=== PATIENT | female | born 1965 | race Hispanic/Latino ===

== ENCOUNTER 2018-09-15 18:23 | Emergency (ER) | payer BC ==
--- NOTE | 2018-09-15 19:34 | ED PDOC ---
Lower Extremity Pain/Injury Time Seen by Provider: 09/15/18 18:44 Chief Complaint (Nursing): Lower Extremity Problem/Injury Chief Complaint (Provider): Fall, head injury, ankle injury History Per: Patient History/Exam Limitations: no limitations Onset/Duration Of Symptoms: Other (prior to arrival) Additional Complaint(s): 53yo female, otherwise well, comes to ER for evaluation after a mechanical fall due to a slip on the landing mat at the end of the stairs. Patient states she twisted her ankle and fell to the ground, hit her head but is unsure if she lost consciousness. Patient now complaining of left ankle and foot pain and mild lower back "soreness." Otherwise, no weakness, numbness, bowel/bladder incontinence. No additional complaints. PMD: Dr. Martin - Ankle/Foot Description Of Injury: Fell, Twisted Past Medical History Reviewed: Historical Data, Nursing Documentation, Vital Signs Vital Signs: Last Vital Signs Temp 99.6 F 09/15/18 18:34 Pulse 62 09/15/18 18:34 Resp 16 09/15/18 18:34 BP 139/50 L 09/15/18 18:34 Pulse Ox 96 09/15/18 18:34 - Medical History PMH: Asthma, HTN - Surgical History Surgical History: No Surg Hx Denies: Cholecystectomy - Family History Family History: States: No Known Family Hx - Living Arrangements Living Arrangements: With Family - Home Medications Home Medications: Ambulatory Orders Medication Instructions Recorded Oxycodone HCl/Acetaminophen 1 tab PO Q6 PRN #12 tab 09/07/15 [Percocet 325 mg-5 mg] - Allergies Allergies/Adverse Reactions: Allergies Allergy/AdvReac Type Severity Reaction Status Date / Time iodine Allergy ANAPHYLAXIS Verified 09/15/18 18:36 shrimp Allergy ANAPHYLAXIS Verified 09/15/18 18:36 Review of Systems ROS Statement: Except As Marked, All Systems Reviewed And Found Negative Eyes: Negative for: Vision Change Gastrointestinal: Negative for: Vomiting Musculoskeletal: Positive for: Back Pain (lower back "soreness"), Foot Pain (left ankle and foot pain) Neurological: Negative for: Weakness, Numbness, Headache Physical Exam - Reviewed Nursing Documentation Reviewed: Yes Vital Signs Reviewed: Yes - Physical Exam Appears: Positive for: Non-toxic Head Exam: Positive for: ATRAUMATIC (no eccymosis, contusion or laceration noted), NORMAL INSPECTION, NORMOCEPHALIC Skin: Positive for: Normal Color Eye Exam: Positive for: Normal appearance, EOMI, PERRL Neck: Positive for: Normal, Supple Cardiovascular/Chest: Positive for: Regular Rate, Rhythm Respiratory: Positive for: Normal Breath Sounds Gastrointestinal/Abdominal: Positive for: Normal Exam, Soft Back: Positive for: Other (mild paralumbar tenderness bilaterally). Negative for: Vertebral Tenderness Extremity: Positive for: Tenderness (mild tenderness to left 5th metatarsal; no tenderness noted to bilateral malleolus), Swelling (mild swelling to left 5th metatarsal; no swelling noted to bilateral malleolus). Negative for: Deformity Neurologic/Psych: Positive for: Alert, Oriented. Negative for: Motor/Sensory Deficits - ECG O2 Sat by Pulse Oximetry: 96 (RA) Pulse Ox Interpretation: Normal Medical Decision Making Medical Decision Making: Impression: Left foot and ankle pain, head injury s/p mechanical fall Plan: -- Tramadol 50mg PO -- XR Left foot -- XR Left ankle -- CT Head w/o contrast Foot/Ankle x-ray: no fx, no dislocation; as read by me. 1999 Patient signed out to TOMMY Gerber pending imaging, reassessment. Scribe Attestation: Documented by Vandana Beckford, acting as a scribe for TOMMY Beckwith. Provider Scribe Attestation: All medical record entries made by the Scribe were at my direction and personally dictated by me. I have reviewed the chart and agree that the record accurately reflects my personal performance of the history, physical exam, medical decision making, and the department course for this patient. I have also personally directed, reviewed, and agree with the discharge instructions and disposition. Disposition - Clinical Impression Clinical Impression: Ankle injury, Head injury - Patient ED Disposition Is Patient to be Admitted: Transfer of Care (to TOMMY Jorgensen) - Disposition Disposition: Transfer of Care Disposition Time: 21:[address] ([address] head) Condition: STABLE Forms: [employer]) (Italian)
--- NOTE | 2018-09-15 20:16 | ED PDOC ---
- ECG O2 Sat by Pulse Oximetry: 96 (RA) Medical Decision Making Medical Decision Making: Pt endorsed to me by TOMMY Freeman @ 20:[address] head results. Head CT: no evidence of bleed or acute abnormality per [facility]. RAFAEL bandage with surgical boot for ambulation. Disposition Counseled Patient/Family Regarding: Studies Performed, Diagnosis, Need For Followup, Rx Given - Clinical Impression Clinical Impression: Head injury, Ankle sprain - POA Present On Arrival: None - Disposition Referrals: Aly Lee DPM [Staff Provider] - Disposition: Routine/Home Disposition Time: 22:06 Condition: STABLE Additional Instructions: Use Tylenol and Ibuprofen for pain. Rest, keep ankle elevated, continue with RAFAEL bandage for compression. Return to ER if you develop visual changes, severe Headache or dizziness. F/u with podiatry if you continue to have worsening ankle pain. Prescriptions: Cane 1 each MC ONCE #1 each Instructions: Ankle Sprain (DC) Forms: [employer] (Burmese), [facility] School/Work Excuse Print Language: GREENLANDIC
[2018-09-15 22:26] VITALS: BP 121/66; PULSE 56; RESP 18; TEMP 98.7
[2018-09-16 05:01] VITALS: O2SAT 96
--- NOTE | 2018-09-16 09:41 | CT ---
Date of service: 09/15/2018 PROCEDURE: CT HEAD WITHOUT CONTRAST. HISTORY: trauma COMPARISON: 09/30/2007 TECHNIQUE: Axial computed tomography images were obtained through the head/brain without intravenous contrast. Radiation dose: Total exam DLP = 823.37 mGy-cm. This CT exam was performed using one or more of the following dose reduction techniques: Automated exposure control, adjustment of the mA and/or kV according to patient size, and/or use of iterative reconstruction technique. FINDINGS: HEMORRHAGE: No intracranial hemorrhage. BRAIN: No mass effect or edema. No atrophy or chronic microvascular ischemic changes. VENTRICLES: Unremarkable. No hydrocephalus. CALVARIUM: Unremarkable. PARANASAL SINUSES: Unremarkable as visualized. No significant inflammatory changes. MASTOID AIR CELLS: Unremarkable as visualized. No inflammatory changes. OTHER FINDINGS: None. IMPRESSION: Normal CT of the Head. No acute intracranial hemorrhage. The preliminary findings for this examination were reported by [facility] at 8:33 p.m. on 09/15/2018. There is concurrence of this report with the preliminary findings.
--- NOTE | 2018-09-16 12:16 | RAD ---
Date of service: 09/15/2018 PROCEDURE: Left Ankle Radiographs. HISTORY: trauma COMPARISON: None available. FINDINGS: BONES: No fracture. Small Achilles tendon insertion and plantar calcaneal spurs. JOINTS: Normal. No osteoarthritis. Ankle mortise maintained. Talar dome intact SOFT TISSUES: Lateral soft tissue swelling without distal fibular abnormality. OTHER FINDINGS: None. IMPRESSION: Soft tissue swelling without acute articular or osseous abnormality.
--- NOTE | 2018-09-16 12:18 | RAD ---
Date of service: 09/15/2018 PROCEDURE: Bilateral Feet Radiographs. HISTORY: Posttraumatic left foot pain COMPARISON: None. FINDINGS: BONES: Right Foot: No visible fractures. Incidental finding: Plantar and Achilles Tendon insertion calcaneal spurs. Left Foot: Normal. No fracture. JOINTS: Right Foot: Moderate hallux valgus deformity Left Foot: Normal. No osteoarthritis. SOFT TISSUES: Right Foot: Normal. Left Foot: Normal. OTHER FINDINGS: None. IMPRESSION: No acute findings related to/ accounting for the clinical presentation.
== END 2018-09-15 22:49 | disposition home or self-care (01) ==
LOC: H.ER 18:23
DX: S09.90XA Unspecified injury of head, initial encounter (principal); S99.912A Unspecified injury of left ankle, initial encounter; I10 Essential (primary) hypertension; J45.909 Unspecified asthma, uncomplicated; W01.0XXA Fall on same level from slipping, tripping and stumbling without subsequent striking against object, initial encounter